=== PATIENT | male | born 1995 | race Hispanic/Latino ===

== ENCOUNTER 2019-11-09 08:25 | Emergency (ER) | payer OTHER, SELFPAY ==
--- NOTE | ~2019-11-09 | XR_ITS ---
EXAMINATION: XR hand LT min 3V INDICATION: Right hand pain, initial encounter TECHNIQUE: Three views of the right hand are obtained. COMPARISON: None available FINDINGS: There is an acute, traumatic, oblique fracture of the third distal phalanx. The fracture do es not appear to involve the interphalangeal joint. Soft tissue swelling surrounds the fracture. Give n history of laceration, this is consistent with an open fracture. There is deformity of the tuft of the first distal phalanx which has a chronic appearance. The osseous structures are otherwise unremar kable. IMPRESSION: 1. Findings consistent with open oblique fracture of the third distal phalanx. Reviewed, dictated and finalized at location A. [facility]
[2019-11-09 08:52] VITALS: BP 114/77; PULSE 82; RESP 26; TEMP 37.4; O2SAT 100
--- NOTE | 2019-11-09 09:44 | ED.SKABFB ---
HPI - Skin/Abscess/Foreign Bdy General Chief complaint: Extremity Injury, Upper Stated complaint: Right Hand laceration 3rd/4th/5th finger Time Seen by Provider: 11/09/19 09:33 Source: patient and RN notes reviewed Mode of arrival: ambulatory Limitations: no limitations History of Present Illness HPI narrative: Patient presents today complaining of injury to his right third, fourth, and fifth fingers. 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 Denies numbness or tingling. Injury occurred just prior to arrival. Currently rates his pain 7/10 and has tried no [id number] medications for symptoms prior to arrival.He is unsure of the date of his last tetanus vaccine MD complaint: laceration Related Data Allergies Allergy/AdvReac Type Severity Reaction Status Date / Time No Known Allergies Allergy Verified 11/09/19 09:11 Review of Systems Review of Systems: Narrative: CONSTITUTIONAL: Denies body aches, fever, chills, or sweats. EYES: Denies visual changes, redness, or discharge. ENT: Denies rhinorrhea, congestion, sore throat, or otalgia. CARDIOVASCULAR: Denies chest pain, palpitations, or edema. RESPIRATORY: Denies cough or dyspnea. GASTROINTESTINAL: Denies abdominal pain, nausea, vomiting, or diarrhea. GENITOURINARY: Denies dysuria or hematuria. SKIN: Lacerations to right third, fourth, and fifth fingers MUSCULOSKELETAL: Denies back pain, joint pain, or myalgia. NEUROLOGIC: Denies headache, numbness, tingling, or weakness. PSYCH: Denies depression or anxiety. PMFSH Comments At time of signature, I have reviewed and agree with nursing past medical, surgical, social and family history unless otherwise noted. Please see nursing chart for further information. There is no relevant family history pertinent to the presenting complaint Exam Narrative: Exam Narrative: GENERAL: Well-appearing, well-nourished, and in no acute distress. HEAD: Normocephalic, atraumatic. EYES: EOMI. No redness or drainage. ENT: Mucous membranes pink and moist. CHEST: No respiratory distress. EXTREMITIES: Right hand:Skin avulsions to the dorsums of all phalanges of the right fourth and fifth fingers. Nails intact. Sensation intact. Capillary refill normal.Right third finger:Fingernail is absent.Deeper skin avulsions to the dorsum of the distal and medial phalanx. Fingers with normal AROM. Some crepitus noted at the distal phalanx of the 3rd finger with palpation. Distal sensation intact. Capillary refill normal. SKIN: Warm, dry, no rash. NEURO: No focal deficits. Alert and oriented x3. Gait steady. PSYCH: Normal affect. No signs of depression or anxiety. Course Vital Signs Vital signs: Vital Signs Temperature 99.3 F 11/09/19 08:52 Pulse Rate 82 11/09/19 08:52 Respiratory Rate 26 H 11/09/19 08:52 Blood Pressure 114/77 11/09/19 08:52 Pulse Oximetry 100 11/09/19 08:52 Temperature 99.3 F 11/09/19 08:52 Pulse Rate 82 11/09/19 08:52 Respiratory Rate 26 H 11/09/19 08:52 Blood Pressure 114/77 11/09/19 08:52 Pulse Oximetry 100 11/09/19 08:52 Reviewed Procedures Laceration Laceration 1: Date: 11/09/19 Time: 09:59 Site: upper extremity Side (If applicable): right Description: flap and irregular ====== Skin Level ====== ====== Subcutaneous Layer ====== ====== Muscle Layer ====== ====== Tendon Layer ====== Dressing: Dermabond applied to the dorsum of the extensive skin avulstions of fourth and fifth fingers. Hemostasis of the third finger was achieved. Dressed and splinted by tech. Extensive pressure flushing of the third finger wound after digital block with 1% lidocaine. MDM - Skin/Abscess/Foreign Bdy Differential Diagnosis Differential diagnosis: Likely other (Laceration, skin avulsion, nail avulsion, fracture) Imaging Data Radiologist's impr
[2019-11-09] MEDS: TETANUS,DIPHTHERIA,AC PERTUSSIS ADULT 0.5 ML (ADACEL) IM (09:45)
== END 2019-11-09 10:15 | disposition home or self-care (01) ==
PROVIDERS: Emergency Provider Nurse Practitioner
DX: S62.662B Nondisplaced fracture of distal phalanx of right middle finger, initial encounter for open fracture (principal); S61.204A Unspecified open wound of right ring finger without damage to nail, initial encounter; S61.206A Unspecified open wound of right little finger without damage to nail, initial encounter; W30.9XXA Contact with unspecified agricultural machinery, initial encounter; Z23 Encounter for immunization
CPT/HCPCS: 29130; 73130; 90471; 90715; 99203; 99204; G0463

== ENCOUNTER 2023-12-18 10:15 | Emergency (ER) | payer SELFPAY ==
--- NOTE | 2023-12-18 10:21 | ED.EYEPROB ---
HPI - Eye Problem General Chief complaint: Eye Problems Stated complaint: Eyes Irritation Time Seen by Provider: 12/18/23 10:18 Source: patient Mode of arrival: ambulatory Limitations: no limitations History of Present Illness HPI Narrative: Patient is a 27-year-old male that presents with 3 days of bilateral eye irritation. Denies any vision changes. Does report eye discharge and being matted shut in the morning. Denies any fever, chills, nausea, vomiting, diarrhea. Has not taken anything for symptoms Related Data Allergies Allergy/AdvReac Type Severity Reaction Status Date / Time No Known Allergies Allergy Verified 12/18/23 10:22 Review of Systems Review of Systems: All systems reviewed & are unremarkable except as noted in HPI and below Constitutional: Constitutional: Denies body ache(s), Denies fever(s), Denies headache(s), Denies malaise and Denies weakness Eyes: Eyes: Denies blurry vision, Reports eye discharge, Reports irritation, Reports itchy eyes, Denies loss of vision and Denies eye pain ENT: Denies otalgia, Denies headache(s), Denies nasal discharge, Denies sinus pain and Denies sore throat Cardiovascular: Cardiovascular: Denies chest pain, Denies irregular heart rhythm and Denies dyspnea Respiratory: Respiratory: Denies dyspnea Gastrointestinal: Gastrointestinal: Denies abdominal pain, Denies diarrhea, Denies nausea and Denies vomiting Musculoskeletal: Musculoskeletal: Denies back pain, Denies myalgias and Denies arthralgias Integumentary/Breasts: Skin/Breast: Denies pruritus and Denies rash Neurologic: Denies headache(s), Denies loss of vision and Denies weakness Psychiatric: Psychiatric: Reports no additional psychiatric complaints Allergic/Immunologic: Allergic/Immunologic: Reports itchy eyes PMFSH Comments At time of signature, agree with nursing past medical, surgical, social and family history. There is no relevant family history pertinent to the presenting complaint. Exam Const: General: cooperative, healthy appearing, comfortable, no acute distress and well nourished Nutritional Appearance: well nourished Orientation/consciousness: patient oriented x3 Limitations: no limitations HENMT: Head: normal to inspection, normocephalic and atraumatic Ears: external ears normal Face/Nose/Sinus: Normal external nose present, normal facial exam and face symmetric Face and sinus: normal facial exam and face symmetric Mouth: Yes lip normal Eyes: General: appearance normal, both eyes and all related structures Visual López: normal visual lópez by confrontation Alignment and Position: alignment normal and position normal Periorbital: periorbital findings normal Eyelids: eyelids normal Conjunctivae: conjunctival abnormality bilateral conjunctival injection diffuse and discharge mucoid Sclera: scleral abnormality bilateral scleral injection diffuse Pupils: Equal, round and reactive pupils present EOM: EOMs intact bilaterally Direct Ophthalmoscopy: no photophobia Other: No hyphema, no foreign body under the lids. Neck: Neck: normal visual inspection, full ROM, no lymphadenopathy and no meningeal signs Chest: Chest palpation & inspection: normal inspection of the chest Resp: Effort & Inspection: normal respiratory effort and able to speak in complete sentences Auscultation: clear to auscultation bilaterally Cardio: Rate: regular rate Rhythm: regular rhythm Heart sounds: S1 normal heart sound present and S2 normal heart sound present GI: Inspection: normal to inspection Skin: General skin exam: normal color and no rashes or lesions noted Neuro: General: patient oriented x3, moves all extremities and no meningeal signs Cranial nerves: Yes Equal, round and reactive pupils present Speech: normal speech Gait exam (Neuro): Normal gait present Extrem: General: normal to inspection, full ROM and no edema Psych: Appearance: grossly normal and well kempt Mental Status: mental status gr
[2023-12-18 10:24] VITALS: BP 106/64; PULSE 79; RESP 16; TEMP 36.3; O2SAT 100
== END 2023-12-18 10:38 | disposition home or self-care (01) ==
PROVIDERS: Emergency Provider Nurse Practitioner Family; PCP Registered Nurse
DX: H10.9 Unspecified conjunctivitis (principal)
CPT/HCPCS: 99213; G0463